=== PATIENT | male | born 1940 | race Caucasian/White ===

== ENCOUNTER 2019-07-20 10:46 | Day surgery (SDC) | payer MEDICARE, OTHER ==
[~2019-07-20] VITALS: Ht 177.8 cm; Wt 75.0 kg
[2019-07-20] VITALS (11 sets, daily range): BP systolic 127–173; BP diastolic 67–96
[2019-07-20] MEDS ORDERED: LORazepam 0.5 MG tablet PO PRN (11:20)
[2019-07-20] MEDS ORDERED: nitroGLYCERIN 0.4mg SUBLingual tab SL PRN ×2 (11:20→14:55)
[2019-07-20] MEDS ORDERED: diphenhydrAMINE 25mg capsule PO PRN (11:20)
[2019-07-20] MEDS ORDERED: BUDE10.2 INH (11:49)
[2019-07-20] MEDS ORDERED: LIOT5TAB10 PO (11:49)
[2019-07-20] MEDS ORDERED: LEVO75TA7 PO (11:49)
[2019-07-20] MEDS ORDERED: SPIR1TAB4 PO (11:49)
[2019-07-20] MEDS ORDERED: PRE5T PO (11:49)
[2019-07-20 12:20] LABS: BASOPHILS # (AUTO) 0.1 X10'3 (0-0.2); EOSINOPHILS % (AUTO) 0.4 % (0-6); HEMATOCRIT 44.4 % (42.0-52.0); HEMOGLOBIN 15.2 g/dl (14.0-17.9); LYMPHOCYTES # (AUTO) 1.9 X10'3 (1.1-4.8); LYMPHOCYTES % (AUTO) 20.1 % (21-51); MEAN CORPUSCULAR HGB CONC 34.3 g/dL (33.0-36.5); MEAN CORPUSCULAR VOLUME 93.3 FL (78-98); MEAN PLATELET VOLUME 8.3 FL (7.4-10.4); MONOCYTES # (AUTO) 0.6 X10'3 (0-0.9); MONOCYTES % (AUTO) 6.5 % (2-12); NEUTROPHILS # (AUTO) 6.9 X10'3 (1.8-7.7); PLATELET COUNT 228 X10'3 (140-440); RED BLOOD COUNT 4.75 X10'6 (4.70-6.10); RED CELL DISTRIBUTION WIDTH 13.5 % (11.5-14.5); WHITE BLOOD COUNT 9.7 X10'3 (4.5-11.0)
[2019-07-20 12:23] LABS: ALBUMIN 3.1 G/DL (3.4-5.0); ANION GAP 6 (8-16); BLOOD UREA NITROGEN 12 MG/DL (7-18); CALCIUM 9.1 MG/DL (8.5-10.1); CHLORIDE 106 MMOL/L (99-107); CREATININE 0.92 MG/DL (0.60-1.10); GLUCOSE 90 MG/DL (70-104); POTASSIUM 3.2 MMOL/L (3.5-5.1); SODIUM 140 MMOL/L (135-145); TOTAL CARBON DIOXIDE 27.6 MMOL/L (24-32); eGFR 80 ML/MIN
[2019-07-20] MEDS ORDERED: GABA-530 PO (12:23)
[2019-07-20] MEDS ORDERED: OMEP10CA5 PO (12:23)
[2019-07-20] MEDS ORDERED: ASPI-1265 PO (12:23)
[2019-07-20] MEDS ORDERED: OMEG1CAP2 (12:23)
[2019-07-20] MEDS ORDERED: ATEN50TA2 PO (12:23)
[2019-07-20] MEDS ORDERED: CYAN5000 SL (12:23)
[2019-07-20] MEDS ORDERED: CHOL20004 PO (12:23)
[2019-07-20 13:09] LABS: PARTIAL THROMBOPLASTIN TIME 29 SECONDS (22-32)
[2019-07-20] MEDS ORDERED: fentaNYL/PF 50MCG/1 ML 2ML syringe ONE (13:43)
[2019-07-20] MEDS ORDERED: LIDOcaine 1% (10mg/ml)w/preservative injection 20ml MDV ONE (13:43)
[2019-07-20] MEDS ORDERED: iohexol 350MG/ML 100ml bottle IV ONE (13:43)
[2019-07-20] MEDS ORDERED: iohexol 350 MG/ML 50ML vial IV ONE (13:43)
[2019-07-20] MEDS ORDERED: midazolam 2 mg/2 ml injection ONE ×2 (13:43→14:17)
--- NOTE | 2019-07-20 14:00 | NUR ---
Pt asked this RN how much longer he had to remain flat and said "The hell I do" when he was told until 1700. This RN educated pt on reasons for remaining flat & the risks of bleeding from arterial puncture site. Dr[facility] of [facility]'s statement. told pt of risks of bleeding and said pt could leave at 1630 or 1700 if pt was insistent on refusing to remain until original order of 1800 discharge time.
[2019-07-20] MEDS ORDERED: nitroGLYCERIN-Tridil 50MG/D5W 250 ML IV ONE (14:12)
[2019-07-20] MEDS ORDERED: HYDROcodone/acetaminophen 10/325mg tab PO PRN (14:55)
[2019-07-20] MEDS ORDERED: proCHLORperazine 10 MG/2 ml inj IV PRN (14:55)
[2019-07-20] MEDS ORDERED: HYDROcodone/acetaminophen 5mg/325mg tablet PO PRN (14:55)
[2019-07-20] MEDS ORDERED: OXAZEpam 15mg capsule PO PRN (14:55)
[2019-07-20] MEDS ORDERED: ondansetron/PF 4mg/2ml inj IV PRN (14:55)
== END 2019-07-20 20:30 | disposition home or self-care (01) ==
LOC: U 10:46 → MED 3N 10:46 → U 20:30
PROVIDERS: ATTEND Internal Medicine Cardiovascular Disease
DX: R94.39 Abnormal result of other cardiovascular function study (principal); I25.119 Atherosclerotic heart disease of native coronary artery with unspecified angina pectoris; J44.9 Chronic obstructive pulmonary disease, unspecified; I10 Essential (primary) hypertension; E78.5 Hyperlipidemia, unspecified; M54.30 Sciatica, unspecified side; F17.210 Nicotine dependence, cigarettes, uncomplicated; Z79.899 Other long term (current) drug therapy; Z79.01 Long term (current) use of anticoagulants
CPT/HCPCS: 36415; 71046; 80048; 85025; 85610; 85730; 93005; 93458; 99152; 99153; C1769; J1644; J2001; J2250; J3010; Q0163; Q9967; A4620; A6258; C1760; J3490

== ENCOUNTER 2019-10-12 09:26 | Outpatient (CLI) | payer OTHER ==
[~2019-10-12 09:26] MED LIST: ALBU0.63 NEB; ASPI-1265 PO; ATEN50TA2 PO; BUDE10.2 INH; CHOL20004 PO; CYAN5000 SL; LEVO75TA7 PO; LIOT5TAB10 PO; OMEG1CAP2 PO; OMEP10CA5 PO; SPIR1TAB4 PO
== END 2019-10-12 10:46 ==
LOC: 64 CT 09:26
PROVIDERS: ATTEND Internal Medicine Critical Care Medicine
DX: K80.20 Calculus of gallbladder without cholecystitis without obstruction (principal); J90 Pleural effusion, not elsewhere classified; R18.8 Other ascites; N40.0 Benign prostatic hyperplasia without lower urinary tract symptoms; M47.817 Spondylosis without myelopathy or radiculopathy, lumbosacral region
CPT/HCPCS: 74176

== ENCOUNTER 2019-10-12 10:56 | Inpatient (IN) | payer MEDICARE, OTHER ==
[2019-10-12] VITALS (18 sets, daily range): BP systolic 85–113; BP diastolic 43–56
[~2019-10-12] VITALS: Ht 172.7 cm; Wt 83.3 kg
--- NOTE | 2019-10-12 11:05 | NUR ---
Received patient as a direct admit from [facility], via [facility]. Patient was brought here for a CT scan. Patient was then admitted.
[2019-10-12] MEDS ORDERED: potassium CL 10mEq/100ml bag 100 ML IV PRN ×2 (11:15)
[2019-10-12] MEDS ORDERED: potassium Cl 20 mEq SR tablet PO PRN ×2 (11:15)
[2019-10-12] MEDS ORDERED: magnesium hydroxide 30ml (MOM) UD suspension PO PRN (11:15)
[2019-10-12] MEDS ORDERED: morphine 4 MG/ML inj SYRINge IV PRN (11:15)
[2019-10-12] MEDS ORDERED: acetaminophen 325mg tablet PO PRN ×2 (11:15)
[2019-10-12] MEDS ORDERED: ipratropium/albuterol 3ml nebule NEB PRN (11:15)
[2019-10-12] MEDS ORDERED: LIDOcaine 2% 10ml TOPICAL JELLY (Urojet) TP ONE (11:15)
[2019-10-12] MEDS ORDERED: ondansetron/PF 4mg/2ml inj IV PRN (11:15)
[2019-10-12] MEDS ORDERED: POTASSIUM BICARB 20meq eff tab 20 MEQ TABLET.EFF OGT PRN (11:40)
[2019-10-12] MEDS ORDERED: acetaminophen 325mg/10.15ml oral unit dose solution NG PRN ×2 (11:41→11:42)
[2019-10-12] MEDS ORDERED: POTASSIUM BICARB 20meq eff tab 20 MEQ TABLET.EFF NG PRN ×2 (11:41)
[2019-10-12] MEDS ORDERED: magnesium hydroxide 30ml (MOM) UD suspension NG PRN (11:42)
--- NOTE | 2019-10-12 12:23 | NUR ---
TF Consult: Pt intubated admit from [facility] w/ fluid collection in abdomen per section chief. Hx COPD, HTN, and received trach last admit w/ NG in place for nutrition. Previously tolerating Jevity prior to LTAC; updated TF recommendations below given intubation needs. Pending physical assessment, labs, and scaled wt this admit; RD contacted [facility] DUNN who reports latest scaled wt 96kg 10/06 making BMI 30 given ht hx 70in. Will hold additional free water at this time pending lab results. Will monitor for TF tolerance and adjustment needs as medically indicated. Rec: 1. NGTF per MD using Vital High Protein at 85ml/hr goal; to provide 2040ml fluid, 2040kcals, 1714ml free water, and 179g protein. Initiate at 20ml/hr and advance 20ml Q8 to goal as tolerated. 2. additional water flush per section chief; pending lab results 3. PALB Q /; daily wts 4. monitor for TF tolerance 5. routine bowel care 6. consider PEG for long-term nutrition needs given tracheostomy and requiring NG for nutrition needs. Addendum: 10/12/19 at [address] Amended: Links added.
[2019-10-12 12:38] LABS: BASOPHILS # (AUTO) 0.1 X10'3 (0-0.2); BASOPHILS % (AUTO) 0.7 % (0-1); EOSINOPHILS # (AUTO) 0.2 X10'3 (0-0.9); EOSINOPHILS % (AUTO) 1.7 % (0-6); HEMATOCRIT 25.3 % (42.0-52.0); HEMOGLOBIN 8.3 g/dl (14.0-17.9); LYMPHOCYTES # (AUTO) 1.3 X10'3 (1.1-4.8); LYMPHOCYTES % (AUTO) 9.4 % (21-51); MEAN CORPUSCULAR HEMOGLOBIN 28.5 PG (27.0-31.0); MEAN CORPUSCULAR HGB CONC 32.8 g/dL (33.0-36.5); MEAN CORPUSCULAR VOLUME 86.8 FL (78-98); MEAN PLATELET VOLUME 11.1 FL (7.4-10.4); MONOCYTES # (AUTO) 0.8 X10'3 (0-0.9); MONOCYTES % (AUTO) 5.9 % (2-12); NEUTROPHILS # (AUTO) 11.2 X10'3 (1.8-7.7); NEUTROPHILS % (AUTO) 82.3 % (42-75); PLATELET COUNT 141 X10'3 (140-440); RED BLOOD COUNT 2.91 X10'6 (4.70-6.10); RED CELL DISTRIBUTION WIDTH 16.3 % (11.5-14.5); WHITE BLOOD COUNT 13.6 X10'3 (4.5-11.0)
[2019-10-12 12:49] LABS: PARTIAL THROMBOPLASTIN TIME 34 SECONDS (22-32)
[2019-10-12 12:50] LABS: ALANINE AMINOTRANSFERASE 11 U/L (12-78); ALBUMIN 2.3 G/DL (3.4-5.0); ALBUMIN/GLOBULIN RATIO 0.7 (1.1-1.5); ALKALINE PHOSPHATASE 46 IU/L (46-116); ANION GAP 7 (8-16); ASPARTATE AMINO TRANSFERASE 14 U/L (10-37); BILIRUBIN,TOTAL 0.8 MG/DL (0.1-1.0); BLOOD UREA NITROGEN 65 MG/DL (7-18); BUN/CREATININE RATIO 24.3 (5.4-32.0); CHLORIDE 106 MMOL/L (99-107); CREATININE 2.68 MG/DL (0.60-1.10); GLUCOSE 96 MG/DL (70-104); MAGNESIUM 2.1 MG/DL (1.5-2.4); PHOSPHORUS 5.7 MG/DL (2.3-4.5); POTASSIUM 4.1 MMOL/L (3.5-5.1); SODIUM 143 MMOL/L (135-145); TOTAL CARBON DIOXIDE 30.4 MMOL/L (24-32); TOTAL PROTEIN 5.7 G/DL (6.4-8.2); eGFR 23 ML/MIN
[2019-10-12 12:57] LABS: LARGE PLATELETS FEW; PLATELET ESTIMATE NORMAL
[2019-10-12] MEDS: normal saline 1000ml 1,000 ML IV SCH ×2 (13:10→21:10)
--- NOTE | 2019-10-12 13:55 | NUR ---
F/u: Pt TF cancelled made NPO per MD at this time per RN; EN recs below given pt needs. Will continue to monitor. Rec: 1. IF TF; Vital High Protein at 85ml/hr goal; to provide 2040ml fluid, 2040kcals, 1714ml free water, and 179g protein. Initiate at 20ml/hr and advance 20ml Q8 to goal as tolerated. 2. IF TF; 200ml Q4 water flushes; Na 143 at this time 3. IF TF; PALB Q /; daily wts 4. routine bowel care 5. consider PEG for long-term nutrition needs given tracheostomy and requiring NG for nutrition needs. Addendum: 10/12/19 at [address] Amended: Links added.
[2019-10-12] MEDS ORDERED: normal saline 1000ml 250 ML IV PRN (14:43)
[2019-10-12] MEDS ORDERED: heparin 1,000unit/ml 10ml vial 10 ML IV ONE (14:43)
[2019-10-12] MEDS ORDERED: epoetin 20,000 units/ml inj IV ONE (14:45)
[2019-10-12] MEDS ORDERED: heparin 1,000 units/ml 10ml inj HE ONE ×2 (14:50)
[2019-10-12] MEDS: aspirin 81mg tab.chew PO SCH (15:00)
[2019-10-12] MEDS: CYANOCOBALAMIN SL SCH (15:15)
[2019-10-12] MEDS: piperacillin/tazo 3.375gm/50ml 50 ML IV SCH ×2 (15:25→16:29)
[2019-10-12] MEDS: ipratropium/albuterol 3ml nebule NEB SCH ×3 (15:45→23:00)
--- NOTE | 2019-10-12 18:20 | NUR ---
Patient in room CICU 2013. I have received report from Lo BREWER, and had the opportunity to ask questions and assume patient care.
--- NOTE | 2019-10-12 18:26 | NUR ---
Report given to DANIELLA Paz
[2019-10-12] MEDS: budesonide 0.5mg/2ml UD nebule IH SCH (19:34)
[2019-10-12] MEDS: atenolol 50mg tablet PO SCH (20:00)
[2019-10-12] MEDS: docusate sodium 100mg/10ml UD cup NG SCH ×2 (20:00→20:37)
[2019-10-12] MEDS: famotidine 20mg tablet NG SCH ×2 (20:00→20:36)
[2019-10-12] MEDS ORDERED: albuterol 2.5 MG/3 ML nebule NEB PRN (20:00)
[2019-10-12] MEDS: sennosides/docusate sodium tablet NG SCH ×2 (20:37→21:00)
[2019-10-12] MEDS ORDERED: famotidine/PF 10 mg/ml inj IV ONE (21:45)
--- NOTE | 2019-10-12 23:19 | NUR ---
Pt had low peak pressures but was maintaining good spo2 and tidal volumes. Ventilator graphics indicated asynchrony. Reviewed order for ventilator settings. Orders stated pressure control. Changed patient from AC/VC to AC/PC 01/01. Patient appeared to breathing more comfortable, better tidal volumes, and improved ventilator graphics.
[2019-10-13] VITALS (22 sets, daily range): BP systolic 96–122; BP diastolic 37–61
--- NOTE | 2019-10-13 00:05 | NUR ---
While performing personal hygiene and turning PT to change sheets, noted a wound to coccyx. Pictures were taken and placed in chart. Hydrophilic foam drsg placed. Will put in for wound care consult and continue to monitor.
[2019-10-13] MEDS: piperacillin/tazo 3.375gm/50ml 50 ML IV SCH ×3 (00:27→16:49)
[2019-10-13 02:49] LABS: BASOPHILS # (AUTO) 0.1 X10'3 (0-0.2); BASOPHILS % (AUTO) 0.6 % (0-1); EOSINOPHILS # (AUTO) 0.1 X10'3 (0-0.9); EOSINOPHILS % (AUTO) 1.1 % (0-6); HEMATOCRIT 23.7 % (42.0-52.0); HEMOGLOBIN 7.6 g/dl (14.0-17.9); LYMPHOCYTES # (AUTO) 1.2 X10'3 (1.1-4.8); LYMPHOCYTES % (AUTO) 9.2 % (21-51); MEAN CORPUSCULAR HEMOGLOBIN 27.9 PG (27.0-31.0); MEAN CORPUSCULAR HGB CONC 32.1 g/dL (33.0-36.5); MEAN CORPUSCULAR VOLUME 87.1 FL (78-98); MEAN PLATELET VOLUME 10.7 FL (7.4-10.4); MONOCYTES # (AUTO) 0.8 X10'3 (0-0.9); MONOCYTES % (AUTO) 6.4 % (2-12); NEUTROPHILS # (AUTO) 10.7 X10'3 (1.8-7.7); NEUTROPHILS % (AUTO) 82.7 % (42-75); PLATELET COUNT 163 X10'3 (140-440); RED BLOOD COUNT 2.72 X10'6 (4.70-6.10); RED CELL DISTRIBUTION WIDTH 15.6 % (11.5-14.5); WHITE BLOOD COUNT 12.9 X10'3 (4.5-11.0)
[2019-10-13 03:05] LABS: ALANINE AMINOTRANSFERASE 11 U/L (12-78); ALBUMIN 2.1 G/DL (3.4-5.0); ALBUMIN/GLOBULIN RATIO 0.6 (1.1-1.5); ALKALINE PHOSPHATASE 41 IU/L (46-116); ANION GAP 6 (8-16); ASPARTATE AMINO TRANSFERASE 16 U/L (10-37); BILIRUBIN,TOTAL 0.9 MG/DL (0.1-1.0); BLOOD UREA NITROGEN 33 MG/DL (7-18); BUN/CREATININE RATIO 18.2 (5.4-32.0); CALCIUM 7.9 MG/DL (8.5-10.1); CHLORIDE 103 MMOL/L (99-107); CREATININE 1.81 MG/DL (0.60-1.10); GLUCOSE 95 MG/DL (70-104); MAGNESIUM 1.8 MG/DL (1.5-2.4); PHOSPHORUS 3.5 MG/DL (2.3-4.5); POTASSIUM 3.9 MMOL/L (3.5-5.1); SODIUM 140 MMOL/L (135-145); TOTAL CARBON DIOXIDE 30.8 MMOL/L (24-32); TOTAL PROTEIN 5.6 G/DL (6.4-8.2); eGFR 36 ML/MIN
[2019-10-13] MEDS: ipratropium/albuterol 3ml nebule NEB SCH ×6 (03:08→23:08)
[2019-10-13 05:10] LABS: ABG BASE EXCESS 3.5 mmol/L (-2.0-2.0); ABG HCO3 26.6 mmol/L (22.0-26.0); ABG OXYGEN SATURATION 95.7 % (94-97); ABG PCO2 (T) 34.8 mmHg (35.0-48.0); ABG PO2 (T) 81.2 mmHg (75.0-100.0); ALLEN'S TEST POSITIVE; FCOHb 0.3 % (0.0-3.9); FMetHb 0.2 % (0.0-1.5); FO2Hb 95.2 % (94-97); PATIENT TEMPERATURE 37.5; PEEP 5 cm H2O; RESPIRATORY RATE 16 b/min; TOTAL HEMOGLOBIN 8.3 G/dl (14.0-18.0)
[2019-10-13] MEDS: normal saline 1000ml 1,000 ML IV SCH (05:10)
--- NOTE | 2019-10-13 06:27 | NUR ---
Problems reprioritized. Patient report given, questions answered & plan of care reviewed with Sol BREWER.
--- NOTE | 2019-10-13 06:47 | NUR ---
Patient in room CICU 2013. I have received report from DANIELLA Paz and had the opportunity to ask questions and assume patient care.
[2019-10-13] MEDS: docusate sodium 100mg/10ml UD cup NG SCH ×2 (07:18→20:30)
[2019-10-13] MEDS: aspirin 81mg tab.chew PO SCH (07:18)
[2019-10-13] MEDS: famotidine 20mg tablet NG SCH (07:18)
[2019-10-13] MEDS ORDERED: pantoprazole 40mg Tablet.DR PO SCH (07:30)
[2019-10-13] MEDS: CYANOCOBALAMIN SL SCH (07:43)
[2019-10-13] MEDS: atenolol 50mg tablet PO SCH (07:43)
[2019-10-13] MEDS: budesonide 0.5mg/2ml UD nebule IH SCH ×2 (07:54→19:24)
[2019-10-13] MEDS ORDERED: FATTY ACIDS PO SCH (08:00)
[2019-10-13] MEDS ORDERED: OMEGA PO SCH (08:00)
[2019-10-13] MEDS ORDERED: liothyronine sod 5mcg tablet PO SCH (08:00)
[2019-10-13] MEDS ORDERED: spironolactone 25 MG tablet PO SCH (08:00)
[2019-10-13] MEDS ORDERED: HYDROchlorothiazide 25mg tablet PO SCH (08:00)
[2019-10-13] MEDS ORDERED: levoTHYROXINE 75mcg tablet PO SCH (08:00)
[2019-10-13] MEDS ORDERED: vitamin D (cholecalciferol) 1,000 unit tablet PO SCH (08:00)
[2019-10-13] MEDS ORDERED: FISH OIL PO SCH (08:00)
[2019-10-13] MEDS ORDERED: famotidine 10mg tablet NG SCH (11:25)
--- NOTE | 2019-10-13 18:18 | NUR ---
Patient in room CICU 2013. I have received report from Sol BREWER, and had the opportunity to ask questions and assume patient care.
[2019-10-13] MEDS: sennosides/docusate sodium tablet NG SCH (20:30)
[2019-10-13] MEDS: atenolol 50mg tablet NG SCH (20:30)
[2019-10-14] VITALS (24 sets, daily range): BP systolic 99–126; BP diastolic 40–61
[2019-10-14] MEDS: piperacillin/tazo 3.375gm/50ml 50 ML IV SCH ×2 (00:10→07:40)
[2019-10-14] MEDS: morphine 2 MG/ML inj. syringe IV PRN ×2 (00:11→16:46)
[2019-10-14] MEDS: ipratropium/albuterol 3ml nebule NEB SCH ×6 (03:07→23:21)
[2019-10-14 03:44] LABS: BASOPHILS # (AUTO) 0.1 X10'3 (0-0.2); BASOPHILS % (AUTO) 0.7 % (0-1); EOSINOPHILS # (AUTO) 0.3 X10'3 (0-0.9); EOSINOPHILS % (AUTO) 2.5 % (0-6); HEMATOCRIT 22.4 % (42.0-52.0); HEMOGLOBIN 7.4 g/dl (14.0-17.9); LYMPHOCYTES # (AUTO) 1.2 X10'3 (1.1-4.8); LYMPHOCYTES % (AUTO) 10.7 % (21-51); MEAN CORPUSCULAR HEMOGLOBIN 28.9 PG (27.0-31.0); MEAN CORPUSCULAR HGB CONC 32.8 g/dL (33.0-36.5); MEAN CORPUSCULAR VOLUME 87.9 FL (78-98); MEAN PLATELET VOLUME 10.2 FL (7.4-10.4); MONOCYTES # (AUTO) 0.8 X10'3 (0-0.9); MONOCYTES % (AUTO) 6.9 % (2-12); NEUTROPHILS # (AUTO) 9.2 X10'3 (1.8-7.7); NEUTROPHILS % (AUTO) 79.2 % (42-75); PLATELET COUNT 169 X10'3 (140-440); RED BLOOD COUNT 2.55 X10'6 (4.70-6.10); RED CELL DISTRIBUTION WIDTH 15.9 % (11.5-14.5); WHITE BLOOD COUNT 11.6 X10'3 (4.5-11.0)
[2019-10-14 04:04] LABS: ALANINE AMINOTRANSFERASE 8 U/L (12-78); ALBUMIN/GLOBULIN RATIO 0.6 (1.1-1.5); ALKALINE PHOSPHATASE 36 IU/L (46-116); ANION GAP 8 (8-16); ASPARTATE AMINO TRANSFERASE 12 U/L (10-37); BILIRUBIN,TOTAL 0.9 MG/DL (0.1-1.0); BLOOD UREA NITROGEN 45 MG/DL (7-18); CALCIUM 8.1 MG/DL (8.5-10.1); CHLORIDE 103 MMOL/L (99-107); CREATININE 2.81 MG/DL (0.60-1.10); GLUCOSE 92 MG/DL (70-104); PHOSPHORUS 4.8 MG/DL (2.3-4.5); POTASSIUM 3.9 MMOL/L (3.5-5.1); SODIUM 140 MMOL/L (135-145); TOTAL CARBON DIOXIDE 29.3 MMOL/L (24-32); TOTAL PROTEIN 5.6 G/DL (6.4-8.2); eGFR 22 ML/MIN
--- NOTE | 2019-10-14 06:25 | NUR ---
Problems reprioritized. Patient report given, questions answered & plan of care reviewed with Charlotte BREWER.
[2019-10-14] MEDS: aspirin 81mg tab.chew NG SCH (07:37)
[2019-10-14] MEDS: docusate sodium 100mg/10ml UD cup NG SCH ×2 (07:37→20:46)
[2019-10-14] MEDS: spironolactone 25 MG tablet NG SCH (07:38)
[2019-10-14] MEDS: HYDROchlorothiazide 25mg tablet NG SCH (07:38)
[2019-10-14] MEDS: liothyronine sod 5mcg tablet NG SCH (07:38)
[2019-10-14] MEDS: vitamin D (cholecalciferol) 1,000 unit tablet NG SCH (07:39)
[2019-10-14] MEDS: atenolol 50mg tablet NG SCH ×2 (07:39→20:46)
[2019-10-14] MEDS: levoTHYROXINE 75mcg tablet NG SCH (07:40)
[2019-10-14] MEDS: pantoprazole 40 MG vial IV SCH (07:40)
[2019-10-14] MEDS: CYANOCOBALAMIN SL SCH (07:40)
[2019-10-14] MEDS: budesonide 0.5mg/2ml UD nebule IH SCH ×2 (07:45→19:18)
[2019-10-14 11:12] LABS: HBSAG SCREEN Negative (Negative)
[2019-10-14] MEDS: levoFLOXACIN-Levaquin 250mg/D5 50 ML IV SCH (12:19)
--- NOTE | 2019-10-14 15:06 | NUR ---
Tube feeding consult. Pt with trach and mechanical ventilation. Presents from [facility], will transfer back next week. Hx COPD, HTN, and received trach last admit w/ NG in place for nutrition. Receiving HD. Current formula and rate recommendation will provide 1316 mg phosphorus, 2633 mg potassium. Rec: 1. Continuous tube feeding using vital AF at 65 ml will provide 1560 ml volume, 1872 cals, 117 g protein, 1265 ml water. 2. additional water flush per MD 3. PALB Q /; daily wts 4. routine bowel care 5. consider PEG for long-term nutrition needs given tracheostomy and requiring NG for nutrition needs. Addendum: 10/14/19 at [address] Amended: Links added.
--- NOTE | 2019-10-14 18:19 | NUR ---
Patient in room CICU 2013. I have received report from DANIELLA Porter and had the opportunity to ask questions and assume patient care.
[2019-10-14] MEDS: sennosides/docusate sodium tablet NG SCH (20:46)
[2019-10-15] VITALS (23 sets, daily range): BP systolic 93–122; BP diastolic 45–68
[2019-10-15 02:39] LABS: BASOPHILS # (AUTO) 0.1 X10'3 (0-0.2); BASOPHILS % (AUTO) 0.6 % (0-1); EOSINOPHILS # (AUTO) 0.4 X10'3 (0-0.9); EOSINOPHILS % (AUTO) 3.6 % (0-6); HEMOGLOBIN 7.6 g/dl (14.0-17.9); LYMPHOCYTES # (AUTO) 1.2 X10'3 (1.1-4.8); LYMPHOCYTES % (AUTO) 11.5 % (21-51); MEAN CORPUSCULAR HEMOGLOBIN 28.8 PG (27.0-31.0); MEAN CORPUSCULAR VOLUME 87.4 FL (78-98); MEAN PLATELET VOLUME 9.5 FL (7.4-10.4); MONOCYTES # (AUTO) 0.6 X10'3 (0-0.9); MONOCYTES % (AUTO) 5.9 % (2-12); NEUTROPHILS # (AUTO) 8.5 X10'3 (1.8-7.7); NEUTROPHILS % (AUTO) 78.4 % (42-75); PLATELET COUNT 187 X10'3 (140-440); RED BLOOD COUNT 2.64 X10'6 (4.70-6.10); RED CELL DISTRIBUTION WIDTH 16.2 % (11.5-14.5); WHITE BLOOD COUNT 10.9 X10'3 (4.5-11.0)
[2019-10-15 02:55] LABS: ALANINE AMINOTRANSFERASE 8 U/L (12-78); ALBUMIN 1.1 G/DL (3.4-5.0); ALBUMIN/GLOBULIN RATIO 0.3 (1.1-1.5); ALKALINE PHOSPHATASE 38 IU/L (46-116); ANION GAP 10 (8-16); ASPARTATE AMINO TRANSFERASE 9 U/L (10-37); BILIRUBIN,TOTAL 0.8 MG/DL (0.1-1.0); BLOOD UREA NITROGEN 52 MG/DL (7-18); BUN/CREATININE RATIO 14.2 (5.4-32.0); CALCIUM 7.6 MG/DL (8.5-10.1); CHLORIDE 104 MMOL/L (99-107); CREATININE 3.67 MG/DL (0.60-1.10); GLUCOSE 99 MG/DL (70-104); PHOSPHORUS 5.9 MG/DL (2.3-4.5); POTASSIUM 4.2 MMOL/L (3.5-5.1); SODIUM 141 MMOL/L (135-145); TOTAL CARBON DIOXIDE 27.2 MMOL/L (24-32); TOTAL PROTEIN 5.5 G/DL (6.4-8.2); eGFR 16 ML/MIN
[2019-10-15] MEDS: ipratropium/albuterol 3ml nebule NEB SCH ×6 (03:37→23:15)
--- NOTE | 2019-10-15 06:21 | NUR ---
Problems reprioritized. Patient report given, questions answered & plan of care reviewed with DANIELLA Porter.
[2019-10-15] MEDS: budesonide 0.5mg/2ml UD nebule IH SCH ×2 (06:49→19:25)
[2019-10-15] MEDS: HYDROchlorothiazide 25mg tablet NG SCH (07:15)
[2019-10-15] MEDS: spironolactone 25 MG tablet NG SCH (07:15)
[2019-10-15] MEDS: levoTHYROXINE 75mcg tablet NG SCH (07:15)
[2019-10-15] MEDS: levoFLOXACIN-Levaquin 250mg/D5 50 ML IV SCH (07:15)
[2019-10-15] MEDS: aspirin 81mg tab.chew NG SCH (07:15)
[2019-10-15] MEDS: pantoprazole 40 MG vial IV SCH (07:15)
[2019-10-15] MEDS: liothyronine sod 5mcg tablet NG SCH (07:15)
[2019-10-15] MEDS: CYANOCOBALAMIN SL SCH (07:16)
[2019-10-15] MEDS: docusate sodium 100mg/10ml UD cup NG SCH ×2 (07:16→20:42)
[2019-10-15] MEDS: atenolol 50mg tablet NG SCH ×2 (07:16→20:42)
[2019-10-15] MEDS: vitamin D (cholecalciferol) 1,000 unit tablet NG SCH (07:16)
[2019-10-15] MEDS ORDERED: heparin 1,000unit/ml 10ml vial 10 ML IV ONE (09:13)
[2019-10-15] MEDS ORDERED: heparin 1,000 units/ml 10ml inj IV ONE (09:15)
[2019-10-15] MEDS ORDERED: epoetin 20,000 units/ml inj IV ONE (09:15)
[2019-10-15] MEDS ORDERED: albumin (human) 25% 100ml IV 100 ML IV PRN (09:15)
[2019-10-15] MEDS ORDERED: heparin 1,000 units/ml 10ml inj HE ONE ×2 (09:20)
[2019-10-15] MEDS ORDERED: tPA-cathflo 2 MG/2 ml IV flush IVF ONE ×4 (11:15→11:25)
--- NOTE | 2019-10-15 18:20 | NUR ---
Patient in room CICU 2013. I have received report from DANIELLA Porter and had the opportunity to ask questions and assume patient care. Patient is awake in bed with soft restraints to upper arms in place. Patient is still confused at times and will pull at lines. Patient with tracheostomy tube in place on the ventilator FiO2 30%.
[2019-10-15] MEDS: sennosides/docusate sodium tablet NG SCH (20:23)
[2019-10-15] MEDS: lactobacillus rhamnosus 10,000 MMU CELLS/CAPSULE PO SCH (20:42)
[2019-10-16] VITALS (23 sets, daily range): BP systolic 94–115; BP diastolic 43–58
--- NOTE | 2019-10-16 02:30 | NUR ---
Critical Hemoglobin 7.3 and Hematocrit 22.0. Result called to Lilibeth Pelaez NP. No new orders at this time.
[2019-10-16] MEDS: ipratropium/albuterol 3ml nebule NEB SCH ×6 (03:03→23:13)
[2019-10-16 03:41] LABS: ALANINE AMINOTRANSFERASE 6 U/L (12-78); ALBUMIN 1.8 G/DL (3.4-5.0); ALBUMIN/GLOBULIN RATIO 0.5 (1.1-1.5); ALKALINE PHOSPHATASE 49 IU/L (46-116); ANION GAP 5 (8-16); ASPARTATE AMINO TRANSFERASE 11 U/L (10-37); BILIRUBIN,TOTAL 0.5 MG/DL (0.1-1.0); BLOOD UREA NITROGEN 34 MG/DL (7-18); BUN/CREATININE RATIO 12.8 (5.4-32.0); CALCIUM 7.7 MG/DL (8.5-10.1); CHLORIDE 103 MMOL/L (99-107); CREATININE 2.65 MG/DL (0.60-1.10); GLUCOSE 106 MG/DL (70-104); MAGNESIUM 1.8 MG/DL (1.5-2.4); POTASSIUM 3.7 MMOL/L (3.5-5.1); SODIUM 139 MMOL/L (135-145); TOTAL CARBON DIOXIDE 31.2 MMOL/L (24-32); TOTAL PROTEIN 5.6 G/DL (6.4-8.2); eGFR 23 ML/MIN
[2019-10-16 03:53] LABS: BASOPHILS % (AUTO) 0.4 % (0-1); EOSINOPHILS # (AUTO) 0.5 X10'3 (0-0.9); EOSINOPHILS % (AUTO) 4.8 % (0-6); HEMOGLOBIN 7.3 g/dl (14.0-17.9); LYMPHOCYTES % (AUTO) 10.6 % (21-51); MEAN CORPUSCULAR HEMOGLOBIN 29.2 PG (27.0-31.0); MEAN CORPUSCULAR HGB CONC 33.4 g/dL (33.0-36.5); MEAN CORPUSCULAR VOLUME 87.4 FL (78-98); MEAN PLATELET VOLUME 9.7 FL (7.4-10.4); MONOCYTES # (AUTO) 0.7 X10'3 (0-0.9); MONOCYTES % (AUTO) 7.8 % (2-12); NEUTROPHILS # (AUTO) 7.2 X10'3 (1.8-7.7); NEUTROPHILS % (AUTO) 76.4 % (42-75); PLATELET COUNT 166 X10'3 (140-440); RED BLOOD COUNT 2.51 X10'6 (4.70-6.10); RED CELL DISTRIBUTION WIDTH 16.3 % (11.5-14.5); WHITE BLOOD COUNT 9.5 X10'3 (4.5-11.0)
--- NOTE | 2019-10-16 06:17 | NUR ---
Problems reprioritized. Patient report given, questions answered & plan of care reviewed with DANIELLA Cobos.
--- NOTE | 2019-10-16 06:17 | NUR ---
Patient in room [facility] 2014. I have received report from Aleida BREWER and had the opportunity to ask questions and assume patient care. Addendum: 10/16/19 at 0618 by Chandrika Cortez RN Amended: Links added.
[2019-10-16] MEDS: pantoprazole 40 MG vial IV SCH (07:14)
[2019-10-16] MEDS: lactobacillus rhamnosus 10,000 MMU CELLS/CAPSULE PO SCH ×3 (07:15→20:43)
[2019-10-16] MEDS: spironolactone 25 MG tablet NG SCH (07:15)
[2019-10-16] MEDS: HYDROchlorothiazide 25mg tablet NG SCH (07:15)
[2019-10-16] MEDS: vitamin D (cholecalciferol) 1,000 unit tablet NG SCH (07:15)
[2019-10-16] MEDS: levoFLOXACIN-Levaquin 250mg/D5 50 ML IV SCH (07:15)
[2019-10-16] MEDS: atenolol 50mg tablet NG SCH ×2 (07:15→20:43)
[2019-10-16] MEDS: levoTHYROXINE 75mcg tablet NG SCH (07:16)
[2019-10-16] MEDS: docusate sodium 100mg/10ml UD cup NG SCH ×2 (07:16→20:00)
[2019-10-16] MEDS: aspirin 81mg tab.chew NG SCH (07:16)
[2019-10-16] MEDS: liothyronine sod 5mcg tablet NG SCH (07:16)
[2019-10-16] MEDS: CYANOCOBALAMIN SL SCH (07:25)
[2019-10-16] MEDS: budesonide 0.5mg/2ml UD nebule IH SCH ×2 (07:27→19:08)
--- NOTE | 2019-10-16 08:23 | NUR ---
Wound care provided to unstageable coccyx wound. Calazyme cream applied to heron wound skin, new Optifoam dressing applied to wound. Picture obtained and placed in chart per policy.
--- NOTE | 2019-10-16 08:44 | NUR ---
Dr. Vasquez in to see pt. RN notified him of H/H 7.3/22.0. Iron studies ordered. Dr. Vasquez stated pt. can go back to [facility] tomorrow. Stated he is ready for transfer today, however, [facility] cannot accept pt. today.
[2019-10-16 09:27] LABS: % IRON SATURATION 24 % (11-46); IRON 23 UG/DL (53-167); TOTAL IRON BINDING CAPACITY 97 UG/DL (259-388)
[2019-10-16 09:32] LABS: FERRITIN 453 NG/ML (26-388)
[2019-10-16] MEDS ORDERED: epoetin 20,000 units/ml inj SQ ONE (10:05)
[2019-10-16] MEDS: sennosides/docusate sodium tablet NG SCH (20:11)
[2019-10-17] VITALS (17 sets, daily range): BP systolic 102–118; BP diastolic 50–70
[2019-10-17 02:59] LABS: BASOPHILS # (AUTO) 0.1 X10'3 (0-0.2); BASOPHILS % (AUTO) 0.5 % (0-1); EOSINOPHILS # (AUTO) 0.5 X10'3 (0-0.9); EOSINOPHILS % (AUTO) 5.4 % (0-6); LYMPHOCYTES # (AUTO) 1.3 X10'3 (1.1-4.8); LYMPHOCYTES % (AUTO) 13.5 % (21-51); MEAN CORPUSCULAR HEMOGLOBIN 28.7 PG (27.0-31.0); MEAN CORPUSCULAR HGB CONC 32.6 g/dL (33.0-36.5); MEAN PLATELET VOLUME 9.8 FL (7.4-10.4); MONOCYTES # (AUTO) 0.8 X10'3 (0-0.9); MONOCYTES % (AUTO) 8.5 % (2-12); NEUTROPHILS # (AUTO) 6.9 X10'3 (1.8-7.7); NEUTROPHILS % (AUTO) 72.1 % (42-75); PLATELET COUNT 154 X10'3 (140-440); RED BLOOD COUNT 2.41 X10'6 (4.70-6.10); RED CELL DISTRIBUTION WIDTH 16.6 % (11.5-14.5); WHITE BLOOD COUNT 9.6 X10'3 (4.5-11.0)
[2019-10-17 03:13] LABS: ALANINE AMINOTRANSFERASE 8 U/L (12-78); ALBUMIN 1.8 G/DL (3.4-5.0); ALBUMIN/GLOBULIN RATIO 0.5 (1.1-1.5); ALKALINE PHOSPHATASE 47 IU/L (46-116); ANION GAP 8 (8-16); ASPARTATE AMINO TRANSFERASE 12 U/L (10-37); BILIRUBIN,TOTAL 0.5 MG/DL (0.1-1.0); BLOOD UREA NITROGEN 45 MG/DL (7-18); BUN/CREATININE RATIO 12.9 (5.4-32.0); CALCIUM 7.6 MG/DL (8.5-10.1); CHLORIDE 105 MMOL/L (99-107); GLUCOSE 109 MG/DL (70-104); MAGNESIUM 1.8 MG/DL (1.5-2.4); PHOSPHORUS 4.9 MG/DL (2.3-4.5); POTASSIUM 4.2 MMOL/L (3.5-5.1); SODIUM 140 MMOL/L (135-145); TOTAL CARBON DIOXIDE 27.2 MMOL/L (24-32); TOTAL PROTEIN 5.6 G/DL (6.4-8.2); eGFR 17 ML/MIN
[2019-10-17] MEDS: ipratropium/albuterol 3ml nebule NEB SCH ×3 (03:15→10:33)
[2019-10-17 03:17] LABS: HEMOGLOBIN 6.9 g/dl (14.0-17.9)
[2019-10-17 03:18] LABS: HEMATOCRIT 21.2 % (42.0-52.0)
--- NOTE | 2019-10-17 06:15 | NUR ---
Patient in room CICU 2013. I have received report from DANIELLA Shin and had the opportunity to ask questions and assume patient care.
--- NOTE | 2019-10-17 06:22 | NUR ---
Problems reprioritized. Patient report given, questions answered & plan of care reviewed with RN. Allison.
[2019-10-17] MEDS: docusate sodium 100mg/10ml UD cup NG SCH (08:00)
[2019-10-17] MEDS: CYANOCOBALAMIN SL SCH (08:00)
[2019-10-17] MEDS: budesonide 0.5mg/2ml UD nebule IH SCH (08:11)
[2019-10-17] MEDS: pantoprazole 40 MG vial IV SCH (09:00)
[2019-10-17] MEDS: levoFLOXACIN-Levaquin 250mg/D5 50 ML IV SCH (09:00)
[2019-10-17] MEDS: spironolactone 25 MG tablet NG SCH (09:01)
[2019-10-17] MEDS: lactobacillus rhamnosus 10,000 MMU CELLS/CAPSULE PO SCH (09:01)
[2019-10-17] MEDS: HYDROchlorothiazide 25mg tablet NG SCH (09:01)
[2019-10-17] MEDS: aspirin 81mg tab.chew NG SCH (09:01)
[2019-10-17] MEDS: liothyronine sod 5mcg tablet NG SCH (09:01)
[2019-10-17] MEDS: atenolol 50mg tablet NG SCH (09:01)
[2019-10-17] MEDS: vitamin D (cholecalciferol) 1,000 unit tablet NG SCH (09:01)
[2019-10-17] MEDS: levoTHYROXINE 75mcg tablet NG SCH (09:02)
[2019-10-17] MEDS ORDERED: piperacillin/tazo 3.375gm/50ml 50 ML IV SCH (11:00)
--- NOTE | 2019-10-17 12:59 | NUR ---
JOHN arrived to transport patient; patient stable for transfer to [facility] per MD orders. Blood finished transfusing at 1250, patient tolerated well. PICC line patent, intact, asymptomatic, saline locked. VSS. Patient taken off ventilator at 1250 & ambu bag used to deliver breaths during transport. No s/sx respiratory distress. Marc catheter in place per MD orders. Report called to Janey at [facility] at 1130. Family notified of transfer. All personal belongings collected and sent with patient. JOHN wheeled patient out of CICU at 1255 on [facility].
== END 2019-10-17 13:00 | DRG 207 ==
LOC: CICU 2S 10:56
PROVIDERS: ADMIT Internal Medicine Critical Care Medicine; ATTEND Internal Medicine Critical Care Medicine
PROC: 5A1955Z Respiratory Ventilation, Greater than 96 Consecutive Hours (ICD-10-PCS; principal; 2019-10-12)
PROC: 0W9F30Z Drainage of Abdominal Wall with Drainage Device, Percutaneous Approach (ICD-10-PCS; 2019-10-12)
PROC: 5A1D70Z Performance of Urinary Filtration, Intermittent, Less than 6 Hours Per Day (ICD-10-PCS; 2019-10-12)
PROC: 5A1D70Z Performance of Urinary Filtration, Intermittent, Less than 6 Hours Per Day (ICD-10-PCS; 2019-10-15)
PROC: 30233N1 Transfusion of Nonautologous Red Blood Cells into Peripheral Vein, Percutaneous Approach (ICD-10-PCS; 2019-10-17)
DX: J96.00 Acute respiratory failure, unspecified whether with hypoxia or hypercapnia (principal); K65.1 Peritoneal abscess; K85.91 Acute pancreatitis with uninfected necrosis, unspecified; N17.9 Acute kidney failure, unspecified; C34.90 Malignant neoplasm of unspecified part of unspecified bronchus or lung; R18.8 Other ascites; Z99.11 Dependence on respirator [ventilator] status; K86.3 Pseudocyst of pancreas; J44.9 Chronic obstructive pulmonary disease, unspecified; Z85.118 Personal history of other malignant neoplasm of bronchus and lung; Z93.0 Tracheostomy status; Z79.899 Other long term (current) drug therapy
CPT/HCPCS: 10030; 36415; 36600; 71045; 80053; 82728; 82803; 82948; 83540; 83550; 83735; 84100; 84134; 85018; 85025; 85610; 85730; 86885; 86900; 86901; 86922; 86945; 87070; 87075; 87077; 87081; 87186; 87340; 94002; 94003; 94640; 94760; 97110; 97161; 97530; 99285; C9113; G0378; J1644; J1956; J2270; J2543; J2997; J3490; J7626; P9016; Q4081

== ENCOUNTER 2019-11-01 07:38 | Day surgery (SDC) | payer OTHER ==
[2019-11-01 07:55] VITALS: BP 135/68
[2019-11-01] MEDS ORDERED: normal saline 1000ml 1,000 ML IV SCH (07:55)
[2019-11-01] MEDS ORDERED: heparin 1,000unit/ml 10ml vial 10 ML ONE (10:02)
[2019-11-01] MEDS ORDERED: LIDOcaine 1%/PF 5ML 10 MG/ML VIAL ONE (10:02)
[2019-11-01] MEDS ORDERED: midazolam 2 mg/2 ml injection ONE (10:03)
[2019-11-01] MEDS ORDERED: fentaNYL/PF 50MCG/1 ML 2ML syringe ONE (10:03)
--- NOTE | 2019-11-01 12:05 | NUR ---
Patient returned to [facility] with [facility] ambulance and respiratory therapist for vent. TDC has been placed to right upper chest by IR, old tdc still in place to right groin. CT abd/pelvis completed. All records sent to [facility]. Report called to recAngella BREWER at [facility].
== END 2019-11-01 11:55 | disposition home or self-care (01) ==
LOC: SSTAY O 07:38
PROVIDERS: ATTEND Radiology Vascular & Interventional Radiology
DX: N18.9 Chronic kidney disease, unspecified (principal); J44.9 Chronic obstructive pulmonary disease, unspecified; Z79.899 Other long term (current) drug therapy; Z98.890 Other specified postprocedural states; Z85.118 Personal history of other malignant neoplasm of bronchus and lung; Z87.19 Personal history of other diseases of the digestive system; Z90.2 Acquired absence of lung [part of]
CPT/HCPCS: 36558; 74176; 76937; 77001; 94760; C1750; C1769; C1894; J1644; J2250; J3010; A9270